=== PATIENT | female | born 1990 | race Caucasian/White ===

== ENCOUNTER 2017-10-29 13:00 | Emergency (ER) | payer BC ==
[~2017-10-29] VITALS: Ht 167.6 cm; Wt 108.9 kg
[~2017-10-29 13:00] MED LIST: CYCL10TA9 PO; LEVO25TA5 PO; LORA1TAB PO
[2017-10-29] MEDS ORDERED: ADENOSINE 6 MG/2 ML (ADENOCARD) VIAL IV ONE (13:30)
[2017-10-29 14:06] VITALS: BP 122/78
--- NOTE | 2017-10-29 14:36 | ED Cardiac General ---
History of Present Illness General Chief Complaint: Cardiac/General Problems Stated Complaint: HEART PALPITATIONS 1 HR Nursing Triage Note: TO ROOM REPORTS SINCE 12A HAS HAD PALPATIONS WITH CHEST PAIN, REPORTS HAD ENEJRY DRINK THIS AM MONITOR SHOW SVT WITH RATE OF 238. DR GLEASON TO ROOM Source: patient Exam Limitations: no limitations History of Present Illness Date Seen by Provider: October 29, 2017 Time Seen by Provider: 13:15 Initial Comments The patient is a 27-year-old white female who presented with a complaint of palpitations and breathlessness. She was found to have a heart rate in the 245 range. She states that she is suffered from SVT at a relatively long intervals since her middle school days. This seemed to come on after the [place]. She states that she takeshis medications. These may at times come on after a period of stress and at this point she had just been stressed having worked long hours while her job was short staffed. This has cleared and she wonders if the relief of stress brought this on. She took an energy drink earlier this morning. Timing/Duration: 1-3 hours Allergies and Home Medications Allergies Coded Allergies: No Known Drug Allergies (Unverified , 10/22/14) Home Medications Levothyroxine Sodium 25 Mcg Tablet, 25 MCG PO DAILY, (Reported) Lorazepam 1 Mg Tablet, 1 MG PO TID PRN for ANXIETY Prescribed by: SHARIF WALLIS on 04/28/16 9889 Patient Home Medication List Home Medication List Reviewed: Yes Review of Systems Constitutional: see HPI EENTM: No Symptoms Reported Respiratory: No Symptoms Reported Cardiovascular: Palpitations Gastrointestinal: No Symptoms Reported Genitourinary: No Symptoms Reported Musculoskeletal: no symptoms reported Skin: no symptoms reported Psychiatric/Neurological: No Symptoms Reported Endocrine: No Symptoms Reported Past [id number] Hx Patient Social History Alcohol Use: Denies Use Recreational Drug Use: No Smoking Status: Former Smoker Type Used: Cigarettes Former Smoker, Quit: Apr 12, 2015 Recent Foreign Travel: No Contact w/Someone Who Travel: No Recent Infectious Disease Expo: No Recent Hopitalizations: No Seasonal Allergies Seasonal Allergies: Yes Past Medical History Surgeries: No Respiratory: No Cardiac: No Neurological: No Reproductive Disorders: No Gastrointestinal: No Musculoskeletal: Yes Endocrine: Yes Hypothyroidsim Cancer: No Psychosocial: Yes Anxiety, Depression Integumentary: No Blood Disorders: No Adverse Reaction/Blood Tranf: No Family Medical History No Pertinent Family Hx Physical Exam Vital Signs Vital Signs - First Documented 10/29/17 13:02 Temp 98.0 Pulse 238 Resp 18 B/P (MAP) 131/84 (100) Pulse Ox 98 O2 Delivery Room Air Capillary Refill : Less Than 3 Seconds General Appearance: Mild Distress, Moderate Distress HEENT: Normal ENT Inspection Neck: Full Range of Motion, Normal Inspection, Non Tender Respiratory: Chest Non Tender, Lungs Clear, Normal Breath Sounds, No Accessory Muscle Use, No Respiratory Distress Cardiovascular: Tachycardia Gastrointestinal: Normal Bowel Sounds, No Organomegaly, No Pulsatile Mass, Non Tender Extremity: Normal Capillary Refill, Normal Inspection, Normal Range of Motion, Non Tender, No Calf Tenderness, No Pedal Edema Neurologic/Psychiatric: Alert, Oriented x3, No Motor/Sensory Deficits, Normal Mood/Affect Skin: Normal Color, Warm/Dry Lymphatic: No Adenopathy Progress/Results/Core Measures Results/Orders My Orders Orders - KATHY GLEASON MD Adenosine Injection (Adenocard Injection (10/29/17 13:30) Ekg Tracing (10/29/17 14:04) Ekg Tracing (10/29/17 14:04) Medications Given in ED Current Medications Medications Dose Ordered Sig/Pham Route Start Time Stop Time Status Last Admin Dose Admin Adenosine 6 mg ONCE ONCE IV 10/29/17 13:30 10/29/17 13:32 DC 10/29/17 13:12 6 MG Vital Signs/I&O 10/29/17 10/29/17 13:02 14:06 Temp 98.0 Pulse 238 106 Resp 18 18 B/P (MAP) 131/84 (100) 122/78 (93) Pulse Ox 98 97 O2 Delivery Room Air Room Air Blood Pressure Mean: 93 Departure Communication (Admissions) 1315 the patient was given adenosine 6 mg rapid push. There was prompt resolution of the tachycardia with the rate falling to a sinus rhythm at 100- 110 bpm. Impression Primary Impression: supraventricular tachycardia Disposition: 01 HOME, SELF-CARE Condition: Improved Departure-Patient Inst. Decision time for Depature: 14:35 Referrals: NO,LOCAL PHYSICIAN (PCP) Primary Care Physician Patient Instructions: Palpitations (DC) Add. Discharge Instructions: All discharge instructions reviewed with patient and/or family. Voiced understanding. Resume usual activities KATHY GLEASON MD October 29, 2017 14:36
[2017-10-29 14:45] VITALS: BP 134/40
== END 2017-10-29 14:48 | disposition home or self-care (01) ==
LOC: EDUNIT# 13:00 → ER 13:02
DX: I47.1 Supraventricular tachycardia (principal); E03.9 Hypothyroidism, unspecified; F41.9 Anxiety disorder, unspecified; F32.9 Major depressive disorder, single episode, unspecified; Z87.891 Personal history of nicotine dependence
CPT/HCPCS: 93005; 96374